=== PATIENT | male | born 1950 | race Caucasian/White ===

== ENCOUNTER 2018-05-17 03:12 | Inpatient (IN) | payer MEDICARE ==
[2018-05-17] VITALS (13 sets, daily range): BP systolic 113–203; BP diastolic 60–97
[~2018-05-17] VITALS: Ht 188 cm; Wt 95.8 kg
--- NOTE | 2018-05-17 03:12 | NUR ---
Pt immediately to room # 12 via EMS stretcher.
--- NOTE | 2018-05-17 03:16 | NUR ---
UPDRAFT CHANGED FROM AIR TO O2 PER DR. MCCULLOUGH.
[2018-05-17] MEDS ORDERED: STIOLTO RESPIMA1 AER IN (03:26)
[2018-05-17] MEDS ORDERED: LISINOP/HCTZ1 TAB PO (03:26)
[2018-05-17] MEDS ORDERED: TIZANIDINE2 MG PO (03:27)
[2018-05-17] MEDS ORDERED: NORVASC5 M1 PO (03:27)
[2018-05-17] MEDS ORDERED: IPRATROPIU0.5 MG/3 M IN (03:27)
[2018-05-17] MEDS ORDERED: ASPIRIN CHEWABL81 MG PO (03:28)
[2018-05-17] MEDS ORDERED: METFORMIN500 MG PO (03:28)
[2018-05-17] MEDS ORDERED: SPIRIVA HANDIHALER IN (03:28)
[2018-05-17] MEDS ORDERED: ATORVASTATIN CA80 MG PO (03:28)
--- NOTE | 2018-05-17 03:30 | NUR ---
PT ARRIVED VIA EMS IN RESP DISTRESS ON UPDRAFT TREATMENT # 2. PT WAS GIVEN SOLUMEDROL EN ROUTE. PT WORKING.
--- NOTE | 2018-05-17 03:36 | NUR ---
AFTER ABG...PT CHANGED BACK TO NEB ON RA AND NC @ 3 LPM APPLIED. SAT AT 94.
--- NOTE | 2018-05-17 03:49 | NUR ---
SBAR PRINTED TO FLOOR
[2018-05-17 03:50] LABS: HEMATOCRIT 46.3 % (39.0-50.0); HEMOGLOBIN 15.5 g/dl (14.0-18.0); IMMATURE GRANULOCYTES 0.5 % (0.0-5.0); MEAN CELL VOLUME 90.8 fL CALC (80.0-100.0); MEAN CORPUSCULAR HGB 30.4 pG CALC (26.0-32.0); MEAN CORPUSCULAR HGB CONC 33.5 g/L CALC (32.0-36.0); NEUT# 14.54 thou/uL (1.82-7.42); RED BLOOD COUNT 5.1 mill/uL (4.70-6.10); RED CELL DISTRI WIDTH 12.4 % (11.5-15.5)
--- NOTE | 2018-05-17 03:52 | NUR ---
ARRIVING IN ER, ABG DRAWN AND ANALYSED. RESULT ON MEDITECH. THEN PLACED ON BIPAP WITH PRESSURE 20/10 AND 26% OXYGEN. SPO2 95% WITH BIPAP SETTING. 4 BREATHING TREATMENT GIVEN WITH ALBUTEROL FOR TIGHTNESS AND WHEEZING. WILL CONTINUE TO MONITOR THE PATIENT.
[2018-05-17 03:56] LABS: ALBUMIN 4.3 g/dL (3.2-5.0); ALKALINE PHOSPHATASE 100 u/l (38-126); BILIRUBIN, TOTAL 0.4 mg/dL (0.0-1.4); BUN 13 mg/dL (8-23); BUN/CREATININE RATIO 20 (12-20 (CALC)); CHLORIDE 93 mmol/l (95-108); CREATININE 0.6 mg/dL (0.7-1.3); GFR > 60 ML/MIN (>=60 (CALC)); GFR FOR AFR.AMER. > 60 ML/MIN (>=60 (CALC)); POTASSIUM 4.5 mmol/l (3.5-5.1); SGPT/ALT 26 u/l (11-66); SODIUM 142 mmol/l (137-146); TOTAL PROTEIN 7.4 g/dL (6.3-8.2)
--- NOTE | 2018-05-17 03:57 | NUR ---
LAB HERE TO DRAW CULTURES
--- NOTE | 2018-05-17 04:01 | NUR ---
DR CAMARENA AT BEDSIDE TO DISCUSS CONDITION AND PLAN OF CARE WITH PT AND FAMILY.
[2018-05-17 04:02] LABS: ANION GAP 18 (6-22 (CALC)); CARBON DIOXIDE 36 mmol/l (22-30)
[2018-05-17 04:03] LABS: SGOT/AST 29 u/l (19-48)
[2018-05-17 04:07] LABS: MYOGLOBIN 55 ng/mL (0 - 121)
--- NOTE | 2018-05-17 04:13 | NUR ---
REPORT TO ICU/DESI DUNLAP.
--- NOTE | 2018-05-17 04:24 | NUR ---
2ND ABD DRAWN AND ANALYSED. RESULT IN [facility].
--- NOTE | 2018-05-17 04:25 | NUR ---
TO FLOOR WITH RT WITH PT ON BIPAP. PT IS MUCH IMPROVED. TOLERATING BIPAP WELL. STILL WHEEZING. BUT WITH LESS EFFORT. FAMILY WITH US TO FLOOR.
--- NOTE | 2018-05-17 04:45 | NUR ---
PT. ARRIVES VIA STRETCHER WITH BIPAP AND NOTEMAN IN PLACE. PT. WITH SOB ON ARRIVAL. SINUS TACH AT 115. HYPERTENSIVE AT 190/90 AT THIS TIME. WHEEZES NOTED THROUGHOUT. DIMINISHED BASES. INTRODUCE TO STAFF AND CALL LIGHT SYSTEM. PT. DENIES PAIN AT THIS TIME. SPO2 IS 96% ON THE BIPAP. SKIN WARM AND DRY. AFEBRILE. BOWEL SOUNDS PRESENT IN 4 QUADS. 1+ PITTING NOTED, BUT PT. APPEARS MORE SWOLLEN THAN AMOUT OF PITTING WOULD SUGGEST. PT. MOVED HIMSELF FROM ER STRETCHER OVER TO BED, BURGESS NOTED. CALL LIGHT WITHIN REACH AND EXPLAINED TO PATIENT. ASSISTED TO REMOVE JEANS AND PROVIDED WITH URINAL ON ARRIVAL PER REQUEST. APPROX 100 CC CONCENTRATED YELLOW URINE OUT AT THIS TIME.
--- NOTE | 2018-05-17 05:46 | NUR ---
PT. RESTING COMFORTABLE ON THE BIPAP. DENIES COMPLAINTS OF PAIN OR NEED. BP IMPROVED. PT. CALM AT THIS TIME. SINUS RHYTHM AT 98. REMAINS ON BIPAP 20/10, RATE OF 20, FIO2 26%. IV ANTIBIOTICS INFUSING WITHOUT SX OF INFILTRATION OR REACTIONS. ROCEPHIN COMPLETE. WILL CONTINUE TO MONITOR.
--- NOTE | 2018-05-17 06:45 | NUR ---
RECIEVED REPORT FROM ROSALINE. [facility] PT C[facility].
--- NOTE | 2018-05-17 07:15 | NUR ---
KOREY RT TO ASSESS PT, NEB TX GIVEN AT BEDSIDE.
--- NOTE | 2018-05-17 07:45 | NUR ---
PT ALERT AND ABLE TO MAKE NEEDS KNOWN. BIPAP INTACT, SEE RT SETTINGS. SA02@98%. LS SOUNDS DIMINISHED IN BASES, WITH WHEEZING NOTED THROUGHOUT. BSX4, PT REPORTS LAST BM 05/16/18. PT CONTINENT OF URINE, BEDSIDE URINAL IN PLACE. RAISED AREA AT INNER/UPPER LEFT BUTTOCKS. PT REMAINS NPO WHILE ON BIPAP, BED IN LOWEST POSITION WITH HOB UP PER PT REQUEST. PT DENIES CHEST PAIN, OR DISTRESS AT THIS TIME. CALL LIGHT IN REACH. WILL MONITOR.
--- NOTE | 2018-05-17 09:45 | NUR ---
PT RESTING WITH HOB UP, BIPAP IN PLACE, SA02 99%. PT DENIES PAIN OR DISTRESS AT THIS TIME. IV CONTINUES INFUSING TO LH AT KVO. CALL LIGHT IN REACH, WILL MONITOR.
--- NOTE | 2018-05-17 10:50 | NUR ---
FAMILY ARRIVED ON UNIT AND AT BEDSIDE.
--- NOTE | 2018-05-17 11:00 | NUR ---
RT KOREY AT BEDSIDE FOR NEB TREATMENT AND TO ASSESS PT OFF BIPAP.
--- NOTE | 2018-05-17 11:25 | NUR ---
RT TO LEAVE PT OFF BIPAP, PT SA02@96% ON 2PLM PAT NC. PT TOLERATING WELL. CALL LIGHT IN REACH, WILL MONITOR.
--- NOTE | 2018-05-17 11:40 | NUR ---
PT REQUESTING INFORMATION AND TO SPEAK WITH DR. MOORE IN REGARDS TO BECOMING A DNR.
--- NOTE | 2018-05-17 12:00 | NUR ---
DR. MOORE AT BEDSIDE TO DISCUSS PLAN OF CARE AND FOR ASSESSMENT.FAMILY REMAINS AT THE BEDSIDE.
--- NOTE | 2018-05-17 12:30 | NUR ---
PT REQUESTED DR. MOORE TO MAKE HIM DNR. EDUCATION GIVEN TO PT AND FAMILY ON DNR STATUS, PT REQUEST GRANTED. PT SIGNED DNR STATUS, PLACED IN PT CHART.
--- NOTE | 2018-05-17 13:30 | NUR ---
LISA FROM CM AT BEDSIDE WITH PT AND FAMILY TO DISCUSS LIVING [facility] AND HEALTH CARE PROXY, EDUCATION PROVIDED.
[2018-05-17 13:52] LABS: HEMATOCRIT 44.1 % (39.0-50.0); HEMOGLOBIN 14.9 g/dl (14.0-18.0); IMMATURE GRANULOCYTES 0.4 % (0.0-5.0); MEAN CELL VOLUME 89.1 fL CALC (80.0-100.0); MEAN CORPUSCULAR HGB 30.1 pG CALC (26.0-32.0); MEAN CORPUSCULAR HGB CONC 33.8 g/L CALC (32.0-36.0); NEUT# 9.97 thou/uL (1.82-7.42); RED BLOOD COUNT 4.95 mill/uL (4.70-6.10); RED CELL DISTRI WIDTH 12.6 % (11.5-15.5)
--- NOTE | 2018-05-17 14:00 | NUR ---
PT ASSISTED TO SIDE OF BED FOR URINAL, DARK YELLOW URINE NOTED. PT DENIES CHEST PAIN, OR DISTRESS AT THIS TIME. 02@2LPM VIA NC CONTINUES, LABORED BREATHING NOTED SA02@ 96%. CALL LIGHT IN REACH, WILL MONITOR.
[2018-05-17 14:18] LABS: ANION GAP 14 (6-22 (CALC)); BUN 15 mg/dL (8-23); BUN/CREATININE RATIO 25 (12-20 (CALC)); CARBON DIOXIDE 36 mmol/l (22-30); CHLORIDE 94 mmol/l (95-108); CREATININE 0.6 mg/dL (0.7-1.3); GFR > 60 ML/MIN (>=60 (CALC)); GFR FOR AFR.AMER. > 60 ML/MIN (>=60 (CALC)); POTASSIUM 4.6 mmol/l (3.5-5.1); SODIUM 139 mmol/l (137-146)
--- NOTE | 2018-05-17 14:25 | NUR ---
critical lactic of 2.5 report to Benedict Sahu RN
--- NOTE | 2018-05-17 16:15 | NUR ---
PT ASSISTED TO BSC, XXL DARK BROWN FORMED BM. PT ASSISTED BACK TO BED, CALL LIGHT IN REACH, WILL MONITOR.
--- NOTE | 2018-05-17 16:30 | NUR ---
PT POLICE OFFICER BOOKING AT BEDSIDE FOR VISIT. PT AFEBRILE, IV FLUID CONTINUES 500ML BOLUS OF NS ORDERED. PT TOLERATING WELL. CALL LIGHT IN REACH, WILL MONITOR.
--- NOTE | 2018-05-17 18:00 | NUR ---
PT RESTING IN BED, FAMILY REMAINS AT THE BEDSIDE. IV FLUIDS CONTINUE ORDERED TO RH, NO S/S OF INFILTRATION AT SITE. SA02 REMAINS 97% ON 02@2LPM VIA NC. BREATHING REMAINS LABORED. PT DENIES CHEST PAIN OR DISTRESS AT THIS TIME. BED IN LOWEST POSITION, CALL LIGHT IN REACH, WILL MONITOR.
--- NOTE | 2018-05-17 19:00 | NUR ---
awake. hob high fowlers position. denies resp diff. o2 cont per nc. family independence case manager shows sinus tach. #20 lt hand ns infusing @ [id number]. po fluids taken well. voids per urinal. fall precautions cont.
--- NOTE | 2018-05-17 19:40 | NUR ---
voided per urinal. urine spec sent to lab.
[2018-05-17 19:47] LABS: URINE BILIRUBIN - DIPSTICK NEGATIVE (NEGATIVE); URINE BLOOD DIPSTICK NEGATIVE (NEGATIVE); URINE COLOR YELLOW; URINE GLUCOSE - DIPSTICK 500 mg/dL (NEGATIVE); URINE KETONE NEGATIVE (NEGATIVE); URINE LEUK ESTERASE NEGATIVE (NEGATIVE); URINE NITRITE - DIPSTICK NEGATIVE (Negative); URINE PH 6.5 (4.5-8.0); URINE PROTEIN - DIPSTICK NEGATIVE (NEG-TRACE); URINE UROBILINOGEN - DIPSTICK 0.2 E.U./dL (0.2)
[2018-05-17 19:56] LABS: URINE CLARITY CLEAR
--- NOTE | 2018-05-17 20:15 | NUR ---
dr guerrero called this copy writer. updated on pts condition. orders rec'd.
--- NOTE | 2018-05-17 22:00 | NUR ---
watching tv. family @ bedside.
--- NOTE | 2018-05-17 22:30 | NUR ---
rt @ bedside. pt doesn't want bipap @ present. o2 per nc cont.
[2018-05-18] VITALS (12 sets, daily range): BP systolic 113–171; BP diastolic 56–82
--- NOTE | 2018-05-18 00:01 | NUR ---
watching tv. sdenies resp distress. monitoring coordinator shows sinus tach family @ bedside.
--- NOTE | 2018-05-18 02:00 | NUR ---
resting quietly. no resp distress. o2 cont.
--- NOTE | 2018-05-18 04:13 | NUR ---
lab here. blood drawn.
[2018-05-18 05:03] LABS: HEMATOCRIT 40.5 % (39.0-50.0); HEMOGLOBIN 13.5 g/dl (14.0-18.0); IMMATURE GRANULOCYTES 0.5 % (0.0-5.0); MEAN CELL VOLUME 90.2 fL CALC (80.0-100.0); MEAN CORPUSCULAR HGB 30.1 pG CALC (26.0-32.0); MEAN CORPUSCULAR HGB CONC 33.3 g/L CALC (32.0-36.0); NEUT# 13.6 thou/uL (1.82-7.42); RED BLOOD COUNT 4.49 mill/uL (4.70-6.10); RED CELL DISTRI WIDTH 12.6 % (11.5-15.5)
[2018-05-18 05:13] LABS: ANION GAP 11 (6-22 (CALC)); BUN 12 mg/dL (8-23); BUN/CREATININE RATIO 19 (12-20 (CALC)); CARBON DIOXIDE 32 mmol/l (22-30); CHLORIDE 102 mmol/l (95-108); CREATININE 0.6 mg/dL (0.7-1.3); GFR > 60 ML/MIN (>=60 (CALC)); GFR FOR AFR.AMER. > 60 ML/MIN (>=60 (CALC)); POTASSIUM 4.4 mmol/l (3.5-5.1); SODIUM 141 mmol/l (137-146)
--- NOTE | 2018-05-18 06:00 | NUR ---
awake. no resp distress this shift. o2 cont per nc. family remains @ bedside.
--- NOTE | 2018-05-18 06:45 | NUR ---
RECIEVED REPORT FROM ROMIE EMERSON. ASSUMED PT CARE.
--- NOTE | 2018-05-18 07:30 | NUR ---
PT AWAKE, ALERT AND ABLE TO MAKE NEEDS KNOWN. FAMILY AT BEDSIDE. AFEBRILE. PERRL, PT ST ON TELEMETRY, HR 102. PT DENIES CHEST PAIN OR DISTRESS. PT CONTINUES WITH LABORED BREATHING, WHEEZING THOUGHOUT ALL LOBES. SA02@95% ON 2PLM VIA NC. BS X 4 ACTIVE. LAST BM XL 05-17-18. PT CONTINENT OF BLADDER. SKIN CDI WITH BERNIE'S TO BLE.T-98.4, B/P- 137/70, P- 102, RR-22.CALL LIGHT IN REACH. WILL MONITOR.
--- NOTE | 2018-05-18 07:40 | NUR ---
SPUTUM SAMPLE OBTAINED AND SENT TO LAB.
--- NOTE | 2018-05-18 08:00 | NUR ---
DIETARY ON UNIT, BREAKFAST TRAY SET UP. FAMILY REMAINS AT BEDSIDE.
--- NOTE | 2018-05-18 09:00 | NUR ---
PT AND FAMILY ASKING QUESTIONS IN REGARDS TO LIVING WILL, REFERRED TO [facility]. PLACED CALL TO LISA.
--- NOTE | 2018-05-18 10:00 | NUR ---
PT UP IN CHAIR, BATH AND SHAVING SUPPLIES SET UP. PT BATHED AND SHAVED SELF. PT TOLERATING EXERTION BETTER WITH LITTLE SOB. 02@2LPM VIA NC CONTINUES. SA02@97%. AFEBRILE. PT OFFERS NO COMPLAINTS AT THIS TIME.
--- NOTE | 2018-05-18 11:51 | NUR ---
PT ASSISTED BACK TO BED. CALL LIGHT IN REACH. DIETARY ON UNIT, LUNCH TRAY SET UP. WILL MONITOR.
--- NOTE | 2018-05-18 14:06 | NUR ---
PT RESTING IN BED. FAMILY REMAINS AT BEDSIDE. IV TO LH CONTINUES WITH NS @ 150ML/HR ORDERED, NO S/S OF INFILTRATION NOTED. 02@2PLM VIA NC CONTINUES. SA02@94%. PT DENIES CHEST PAIN, SOB OR DISTRESS AT THIS TIME. BERNIE'S BLES INTACT. PT TAKING PO FLUIDS WITHOUT DIFFICULTY. CALL LIGHT IN REACH, WILL MONITOR.
--- NOTE | 2018-05-18 16:04 | NUR ---
PT RESTING IN BED, OFFERS NO COMPLAINTS AT THIS TIME,
--- NOTE | 2018-05-18 17:00 | NUR ---
DR. MOORE AT BEDSIDE FOR ASSESSMENT AND TO DISCUSS PLAN OF CARE, NEW ORDERS RECIEVED.
--- NOTE | 2018-05-18 18:11 | NUR ---
PT RESTING IN BED, FAMILY REMAINS AT THE BEDSIDE. ALL IV MEDS HAVE BEEN DISCONTINUED. PT SA02@95% ON 2PLM VIA NC. PT CONTINUES SBA WITH NO SOB UPON EXERTION. PT DENIES CHEST PAIN, SOB OR DISTRESS AT THIS TIME. CALL LIGHT IN REACH, WILL MONITOR.
--- NOTE | 2018-05-18 19:00 | NUR ---
awake. denies resp diff. o2 cont per nc. keno manager shows sinus rhythm. #20 lt hand saline lock. po fluids taken well. voids per urinal. fall precautions cont.
--- NOTE | 2018-05-18 22:00 | NUR ---
watching tv. no resp diff. o2 cont. family @ bedside.
[2018-05-19] VITALS (12 sets, daily range): BP systolic 74–163; BP diastolic 52–88
--- NOTE | 2018-05-19 00:01 | NUR ---
eyes closed. no distress. monitoring analyst shows sinus rhythm.
--- NOTE | 2018-05-19 02:00 | NUR ---
resting quietly. resps even & unlabored. o2 cont.
--- NOTE | 2018-05-19 04:00 | NUR ---
lab here. blood drawn.
[2018-05-19 04:22] LABS: HEMATOCRIT 42.9 % (39.0-50.0); HEMOGLOBIN 14.4 g/dl (14.0-18.0); IMMATURE GRANULOCYTES 0.3 % (0.0-5.0); MEAN CELL VOLUME 90.1 fL CALC (80.0-100.0); MEAN CORPUSCULAR HGB 30.3 pG CALC (26.0-32.0); MEAN CORPUSCULAR HGB CONC 33.6 g/L CALC (32.0-36.0); NEUT# 12.79 thou/uL (1.82-7.42); RED BLOOD COUNT 4.76 mill/uL (4.70-6.10); RED CELL DISTRI WIDTH 12.6 % (11.5-15.5)
[2018-05-19 04:33] LABS: ANION GAP 10 (6-22 (CALC)); BUN 14 mg/dL (8-23); BUN/CREATININE RATIO 21 (12-20 (CALC)); CARBON DIOXIDE 36 mmol/l (22-30); CHLORIDE 102 mmol/l (95-108); CREATININE 0.7 mg/dL (0.7-1.3); GFR > 60 ML/MIN (>=60 (CALC)); GFR FOR AFR.AMER. > 60 ML/MIN (>=60 (CALC)); POTASSIUM 4.2 mmol/l (3.5-5.1); SODIUM 143 mmol/l (137-146)
--- NOTE | 2018-05-19 06:00 | NUR ---
eyes closed. no distress. child monitor shows sinus rhythm.
--- NOTE | 2018-05-19 06:45 | NUR ---
RECIEVED REPORT FROM ROMIE EMERSON. ASSUMED PT CARE.
--- NOTE | 2018-05-19 07:15 | NUR ---
PT RESTING IN BED. ALERT & oRIENT X 3, ABLE TO MAKE NEEDS KNOWN.PERRL. PT IS ST ON TELEMETRY. HR-101, B/P-162/77, T- 98.2, RR- 22, SA02@95% ON 2PLM VIA NC. LS WITH RHONCHI THROUGHOUT. PT CONTINUES WITH INTERMITTENT PRODUCTIVE COUGH. CONTINENT ON B&B,, BS X4 ACTIVE. ABDOMEN SOFT, NON-TENDER. BLE CONTINUES @ +1, BERNIE'S INTACT. PT SBA WITH AMBULATION. PT DENIES CHEST PAIN, SOB OR DISTRESS AT THIS TIME. IV/SL TO LH FLUSHED WITHOUT DIFFICULTY, NO S/S OF INFILTRATION NOTED AT SITE. FAMILY REMAINS AT BEDSIDE. CALL LIGHT IN REACH, WILL MONITOR.
--- NOTE | 2018-05-19 08:00 | NUR ---
DIETARY ON UNIT, BREAKFAST TRAY SET UP.
--- NOTE | 2018-05-19 10:00 | NUR ---
DR. CHAVEZ AT BEDSIDE FOR ASSESSMENT AND TO DISCUSS PLAN OF CARE. NEW ORDERS RECIEVED.PT FAMILY REMAINS AT THE BEDSIDE.
--- NOTE | 2018-05-19 11:53 | NUR ---
PT RESTING IN BED, LUNCH TRASY SET UP. PT OFFERS NO COMPLAINTS AT THIS TIME. FAMILY AT BEDSIDE. CALL LIGHT IN REACH, WILL MONITOR.
--- NOTE | 2018-05-19 14:00 | NUR ---
PT RESTING IN BED, OFFERS NO COMPLAINTS AT THIS TIME.
--- NOTE | 2018-05-19 15:23 | NUR ---
PT SITTING IN CHAIR, 02@2LPM VIA NC. PT DENIES CHEST PAIN, SOB OR DISTRESS AT THIS TIME. FAMILY REMAINS AT THE BEDSIDE. CALL LIGHT IN REACH, WILL MONITOR
--- NOTE | 2018-05-19 17:04 | NUR ---
PT SITTING IN CHAIR, RT AT BEDSIDE FOR [facility] [place]. CALL LIGHT IN REACH, WILL MONITOR.
--- NOTE | 2018-05-19 18:19 | NUR ---
PT REMAINS SITTING IN RECLINER, PT DENIES CHEST PAIN, SOB OR DISTRESS AT THIS TIME. SA02@97% ON 2LPM VIA NC. CALL LIGHT IN REACH, WILL MONITOR.
--- NOTE | 2018-05-19 18:23 | NUR ---
DR. DIXON AT BEDSIDE FOR ASSESSMENT AND TO DISCUSS PLAN OF CARE.
--- NOTE | 2018-05-19 20:00 | NUR ---
PT IN BED WATCHING TV, RESPIRATIONS EVEN AND UNLABORED ON O2 @2L VIA NC, O2 SAT 96%. LUNG SOUNDS CLEAR WITH COARSE BASES BILAT. DENIES SOB, PAIN OR DISCOMFORT. SR 80'S ON HEART MONITOR. URINAL AT BED SIDE, PO FLUIDS IN REACH. ENCOURAGED TO CALL LIGHT FOR ASSISTANCE. WILL CONTINUE TO MONITOR.
--- NOTE | 2018-05-19 21:26 | NUR ---
ACCUCHECK 272, COVERED WITH 3UNITS OF NOVULOG INSULIN SQ, PER SS, STOLERATED WELL.
--- NOTE | 2018-05-19 23:38 | NUR ---
RESTING IN SEMIFOWLERS WITH EYES CLOSED, RESPIRATIONS EVEN AND UNLABORED ON O2 @2L VIA NC, O2 SAT 95%. CALL LIGHT IN REACH.
[2018-05-20] VITALS (7 sets, daily range): BP systolic 128–149; BP diastolic 63–86
--- NOTE | 2018-05-20 02:00 | NUR ---
RESTING IN SEMIFOWLERS WITH EYES CLOSED, RESPIRATIONS EVEN AND UNLABORED ON O2 @2L ASAD NC, O2 SAT 96%. CALL LIGHT IN REACH.
--- NOTE | 2018-05-20 04:20 | NUR ---
MORNING BLOOD WORK DRAWN BY DIRECTOR OF ARCHITECTURE, TOLERATED WELL.
[2018-05-20 04:41] LABS: HEMATOCRIT 40.6 % (39.0-50.0); HEMOGLOBIN 13.9 g/dl (14.0-18.0); MEAN CELL VOLUME 87.5 fL CALC (80.0-100.0); MEAN CORPUSCULAR HGB CONC 34.2 g/L CALC (32.0-36.0); RED BLOOD COUNT 4.64 mill/uL (4.70-6.10); RED CELL DISTRI WIDTH 12.4 % (11.5-15.5)
[2018-05-20 04:52] LABS: ANION GAP 12 (6-22 (CALC)); BUN 20 mg/dL (8-23); BUN/CREATININE RATIO 34 (12-20 (CALC)); CARBON DIOXIDE 31 mmol/l (22-30); CHLORIDE 100 mmol/l (95-108); CREATININE 0.6 mg/dL (0.7-1.3); GFR > 60 ML/MIN (>=60 (CALC)); GFR FOR AFR.AMER. > 60 ML/MIN (>=60 (CALC)); POTASSIUM 4.5 mmol/l (3.5-5.1); SODIUM 138 mmol/l (137-146)
--- NOTE | 2018-05-20 06:45 | NUR ---
recieved report from [facility].
--- NOTE | 2018-05-20 07:15 | NUR ---
PT ALERT AND ABLE TO MAKE NEEDS KNOWN. PT SITTING UP IN BED. SR ON TELEMETRY, HR- 93, B/P 136/68, T- 98.5, RR- 22, SA02@92 ON 2LPM VIA N/C. LS WITH WHEEZING/RHONCHI THROUGHOUT. PT DENIES SOB, CHEST PAIN OR DISTRESS AT THIS TIME. PERRL. PT CONTINENT OF B&B, LAST BM SAT.05-17-18. ABDOMEN SOFT, NON-TENDER. SKIN IS CDI, PT SBA WITH ADL'S AND TRANSFERS. 22G @LW /SL FLUSHES WITHOUT DIFFICULTY NOTED, NO S/S OF INFILTRATION OR INFECTION NOTED. CALL LIGHT IN REACH, WILL MONITOR.
--- NOTE | 2018-05-20 08:00 | NUR ---
DR. CHAVEZ AT BEDSIDE FOR ASSESSMENT AND TO DISCUSS PLAN OF CARE.
--- NOTE | 2018-05-20 08:21 | NUR ---
MED RECORDE NOTIFIED IN REGARDS TO PT PULMONARY FUNCTION TEST. RESULT BROUGHT TO UNIT FOR DR. CHAVEZ TO REVIEW.
[2018-05-20] MEDS ORDERED: LEVAQUIN750 MG PO (08:30)
[2018-05-20] MEDS ORDERED: ALBUTEROL SUL0.083 % IN (08:30)
[2018-05-20] MEDS ORDERED: PREDNISONE10 MG PO (08:30)
--- NOTE | 2018-05-20 08:30 | NUR ---
DR. DIXON AT BEDSIDE FOR ASSESSMENT AND TO DISCUSS PLAN OF CARE.
[2018-05-20] MEDS ORDERED: SYMBICORT1 AE1 IN (08:33)
--- NOTE | 2018-05-20 09:00 | NUR ---
NEW ORDERS RECIEVED.
--- NOTE | 2018-05-20 09:57 | NUR ---
SID FROM CM AT BEDSIDE TO DEMARCUS DISCHARGE PLANNING.
--- NOTE | 2018-05-20 10:36 | NUR ---
TOÑO FROM [facility] AT BEDSIDE TO CHILDCARE ADMINISTRATOR PRESCRIPTIONS OF ALBUTEROL, LEVAQUIN, PRENISONE AND SYMBICORT. PT AGREED TO AND ASKED TO CHILDCARE ADMINISTRATOR AT STORE.
--- NOTE | 2018-05-20 12:15 | NUR ---
IV site discontinued, cath intact. No edema , no redness, voices no discomfort.
--- NOTE | 2018-05-20 12:26 | NUR ---
RT AT BEDSIDE FOR SA02%/WALK STUDY. FAMILY REMAINS AT THE BEDSIDE PT TOLERATING WELL. PT OFFERS NO COMPLAINTS AT THIS TIME. WILL MONITOR
--- NOTE | 2018-05-20 12:50 | NUR ---
Discharge instructions given. Patient verbalizes understanding of same. Discharged in stable condition via Wheelchair to Home with family. All belongings sent with pt.
== END 2018-05-20 12:50 | disposition home or self-care (01) | DRG 189 ==
LOC: ED 03:12 → ED-I 03:46 → ED 04:03 → ICU 04:04
PROVIDERS: Family Medicine; Internal Medicine; ADMIT General Practice; ATTEND General Practice
PROC: 5A09357 Assistance with Respiratory Ventilation, Less than 24 Consecutive Hours, Continuous Positive Airway Pressure (ICD-10-PCS; principal; 2018-05-17)
DX: J96.22 Acute and chronic respiratory failure with hypercapnia (principal); J44.1 Chronic obstructive pulmonary disease with (acute) exacerbation; I10 Essential (primary) hypertension; E11.9 Type 2 diabetes mellitus without complications; M19.90 Unspecified osteoarthritis, unspecified site; Z87.891 Personal history of nicotine dependence; Z99.81 Dependence on supplemental oxygen
CPT/HCPCS: J1650

== ENCOUNTER 2021-11-13 07:00 | Day surgery (SDC) | payer MEDICARE ==
[~2021-11-13 07:00] MED LIST: ALBUTEROL SUL0.083 % IN; ASPIRIN CHEWABL81 MG PO; ATORVASTATIN CA80 MG PO; IPRATROPIU0.5 MG/3 M IN; LEVAQUIN750 MG PO; LISINOP/HCTZ1 TA1 PO; LISINOP/HCTZ1 TAB PO; METFORMIN500 MG PO; NORVASC10 M1 PO; NORVASC5 M1 PO; PREDNISONE10 MG PO; PROAIR HFA108 MCG/AC IN; PROTONIX40 M2 PO; SPIRIVA HANDIHALER IN; STIOLTO RESPIMA1 AER IN; SYMBICORT1 AE1 IN; TIZANIDINE2 MG PO; TRULICITY1.5 MG/0.5 SC; VITAMIN C1000 MG PO; [UNRECOGNIZED DRUG - OTHER] PO
[2021-11-13 11:21] VITALS: BP 148/72
== END 2021-11-13 11:05 | disposition home or self-care (01) ==
LOC: ENDO 07:00 → ORM 08:00 → ENDO 11:05
PROVIDERS: ATTEND Surgery
PROC: 0DBN8ZX Excision of Sigmoid Colon, Via Natural or Artificial Opening Endoscopic, Diagnostic (ICD-10-PCS; principal; 2021-11-13)
PROC: 3E0H8GC Introduction of Other Therapeutic Substance into Lower GI, Via Natural or Artificial Opening Endoscopic (ICD-10-PCS; 2021-11-13)
PROC: 0DB78ZX Excision of Stomach, Pylorus, Via Natural or Artificial Opening Endoscopic, Diagnostic (ICD-10-PCS; 2021-11-13)
DX: C18.7 Malignant neoplasm of sigmoid colon (principal); K57.30 Diverticulosis of large intestine without perforation or abscess without bleeding; K29.50 Unspecified chronic gastritis without bleeding; B96.81 Helicobacter pylori [H. pylori] as the cause of diseases classified elsewhere; K44.9 Diaphragmatic hernia without obstruction or gangrene; Q40.2 Other specified congenital malformations of stomach; D50.0 Iron deficiency anemia secondary to blood loss (chronic); I10 Essential (primary) hypertension; E11.9 Type 2 diabetes mellitus without complications; E78.5 Hyperlipidemia, unspecified; J44.9 Chronic obstructive pulmonary disease, unspecified; Z87.891 Personal history of nicotine dependence; Z79.84 Long term (current) use of oral hypoglycemic drugs; Z80.0 Family history of malignant neoplasm of digestive organs

== ENCOUNTER 2021-11-15 09:29 | Inpatient (IN) | payer MEDICARE ==
[~2021-11-15] VITALS: Ht 182.9 cm; Wt 97.5 kg
[2021-11-15] MEDS ORDERED: SENIOR VITAM PO (13:29)
[2021-11-16] VITALS (7 sets, daily range): BP systolic 112–144; BP diastolic 55–68
--- NOTE | 2021-11-16 17:09 | NUR ---
PT ARIVED ON UNIT @ 1607 TRANSPORTED VIA STRETCHER BY OR/PASU STAFF AND TRANSFERRED TO BED. BEDSIDE REPORT GIVEN BY TRANSPORTING STAFF, PT IS ALERT AND ORIENTED, C/O VERY MILD ABD PAIN @ 3/10, INCISION TO ABD WITH DRESSING INTACT AND VISIBLE BLOOD TO DISTAL ED OF DRESSING, ABD BINDER IN PLACE, SMITH CATHETER IN PLACE WITH CLEAR YELLOW URINE. O2 @ 2L VIA NC IN PLACE, IVF INFUSING TO SITE IN RAC. PT ORIENTED TO ROOM AND CALL MCKEON, WILL CONTINUE TO MONITOR.
--- NOTE | 2021-11-16 18:58 | NUR ---
RECIEVED REPORT FROM DESI ARDON
--- NOTE | 2021-11-16 19:00 | NUR ---
RECIEVED REPORT FROM DESI ARDON
--- NOTE | 2021-11-16 19:00 | NUR ---
PT RESTING IN SEMI FOWLERS POSITION. PT IS A/OX3. ASSESSMENT AND VITALS COMPLETED. RESPIRATIONS EVEN AND UNLABORED. LUNG SOUNDS CLEAR. HEART RHYTHM NORMAL. BOWEL SOUNDS CLEAR.#20G RAC INFUSING WITH IVF PER ORDER, SITE REMAINS HEALTHY AND PATENT.PULSES STRONG, SCDS NOTED. MIDLINE SURGICAL SITE NOTED, SMALL AMOUNT OF DRAINAGE NOTED. ABD BINDER SECURED. SMITH CATH PATENT, CLEAR YELLOW URINE NOTED. PT DENIES OF ANY PAINS OR DISCOMFORTS AT THIS TIME. ALL SAFTEY PRECAUTIONS ARE IN PLACE WITH CALL LIGHT IN REACH. WILL CONTINUE TO MONITOR.
[2021-11-17] VITALS: BP 119/67
--- NOTE | 2021-11-17 00:15 | NUR ---
PT MEDICATED WITH SCHEDULED PAIN MEDICATIONS. RESPIRATIONS EVEN AND UNLABORED ON 2L NC RESTING IN SEMI FOWLERS POSITION. #20G RAC INFUSING WITH IVF PER ORDER, SITE PATENT.MIDLINE DRESSING REMAINS CDI. SMITH CATH PATENT. PT DENIES OF ANY ADDITIONAL NEEDS. ALL SAFTEY PRECAUTIONS ARE IN PLACE WITH CALL LIGHT IN REACH. WILL CONTINUE TO MONITOR
--- NOTE | 2021-11-17 01:06 | NUR ---
PT STATES NO CURRENTS PAINS. I.S PROVIDED. PT EDUCATED ON [employer]. PT ABLE TO DEMONSTRATE, 1999 REACH.
--- NOTE | 2021-11-17 03:56 | NUR ---
PT SLEEPING IN SEMI FOWLERS POSITION. RESPIRATIONS EVEN AND UNLABORED ON 2L NC RESTING IN SEMI FOWLERS POSITION. #20G RAC INFUSING WITH IVF PER ORDER, SITE PATENT.MIDLINE DRESSING REMAINS CDI. SMITH CATH JASON. ALL SAFTEY PRECAUTIONS ARE IN PLACE WITH CALL LIGHT IN REACH. WILL CONTINUE TO MONITOR
[2021-11-17 04:00] VITALS: BP 115/69
[2021-11-17 05:26] LABS: IMMATURE GRANULOCYTES 0.2 % (0.0-5.0); MEAN CELL VOLUME 81.2 fL CALC (80.0-100.0); MEAN CORPUSCULAR HGB 24.1 pG CALC (26.0-32.0); MEAN CORPUSCULAR HGB CONC 29.7 g/dL CAL (32.0-36.0); NEUT# 15.73 thou/uL (1.82-7.42); RED BLOOD COUNT 3.94 mill/uL (4.70-6.10)
[2021-11-17 05:38] LABS: HEMOGLOBIN 9.5 g/dl (14.0-18.0)
[2021-11-17 05:50] LABS: ANION GAP 11 (6-22 (CALC)); BUN 12 mg/dL (8-23); BUN/CREATININE RATIO 12 (12-20 (CALC)); CHLORIDE 101 mmol/l (95-108); GFR > 60 ML/MIN (>=60 (CALC)); GFR FOR AFR.AMER. > 60 ML/MIN (>=60 (CALC)); POTASSIUM 3.8 mmol/l (3.5-5.1); SODIUM 137 mmol/l (137-146)
[2021-11-17 05:54] LABS: CARBON DIOXIDE 29 mmol/l (22-30)
[2021-11-17 08:00] VITALS: BP 126/69
--- NOTE | 2021-11-17 08:00 | NUR ---
REPORT RECEIVED FROM ROMIE RITTER. PT AWAKE ALERT AND APPROPRIATE. VSS, PT ASSESSMENT PREFORMED. POC DISCUSSED. PT AGREES TO GET OOB AND PARTICIPATE WITH DAILY CARE. DENIES PAIN, SOB OR DISCOMFORT. CALL LIGHT WITHIN REACH. INSTRUCTED PT TO CALL FOR ASSISTANCE, VERBALIZES UNDERSTANDING.
--- NOTE | 2021-11-17 10:30 | NUR ---
PT note Patient is screened for PT intervention and no needs are identified at this time
--- NOTE | 2021-11-17 14:37 | NUR ---
PT RESTING IN BED. STATES NO PAIN AT THIS TIME. IV PATENT. FALL/SAFETY PRECAUTIONS IN PLACE. CALL LIGHT WITHIN REACH.
--- NOTE | 2021-11-17 15:44 | NUR ---
SMITH REMOVED AT THIS TIME. PT TOLERATED WELL. IVF INFUSING WITH NO COMPLICATION. CALL LIGHT WITHIN REACH. FALL/SAFETY PRECAUTION IN PLACE.
--- NOTE | 2021-11-17 19:20 | NUR ---
PT SITTING IN RECLINER AT BEDSIDE, PT ALERT AND ORIENTED X4, DISCUSSED POC, PT DENIES ANY PAIN AT THIS TIME. 02 1L NC, DISCUSSED INCENTIVE SPIROMETER PT REACHED 500ML, ENCOURAGED ITS USE AND INCREASED GOAL TO 1000ML VOLUME. BS HYPERACTIVE X4, PT STATES BM 2/3. DRESSING TO ABD CDI, ABDOMINAL BINDER REPLACED. NOTED BLE TRACE; ENCOURAGED ELEVATION. ASSESSMENT REVIEW COMPLETED, CALL LIGHT IN REACH,CONTINUE TO MONITOR.
[2021-11-17 20:00] VITALS: BP 140/68
--- NOTE | 2021-11-17 20:50 | NUR ---
PT SITTING IN RECLINER, NO SIGNS OF DISTRESS NOTED, RESP EVEN AND UNLABORED. PT MEDICATED PER MAR, THEN ASSISTED TO BED FROM RECLINER, PT TOLERATED WELL. VOICES NO NEEDS OR COMPLAINTS, CALL LIGHT IN REACH,CONTINUE TO MONITOR.
--- NOTE | 2021-11-18 | NUR ---
PT RESTING IN BED, MEDICATED PER MAR, VOICES NO NEEDS OR COMPLAINTS AT THIS TIME, CALL LIGHT IN REACH,CONTINUE TO MONITOR.
[2021-11-18 04:00] VITALS: BP 136/71
--- NOTE | 2021-11-18 05:36 | NUR ---
PT RESTING IN BED, NO SIGNS OF DISTRESS NOTED, RESP EVEN AND UNLABORED. PT VOICES NO NEEDS OR COMPLAINTS AT THIS TIME, PT MEDICATED PER MAR, CALL LIGHT IN REACH,CONTINUE TO MONITOR.
[2021-11-18 05:55] LABS: HEMATOCRIT 29.4 % (39.0-50.0); HEMOGLOBIN 8.8 g/dl (14.0-18.0); MEAN CELL VOLUME 81.2 fL CALC (80.0-100.0); MEAN CORPUSCULAR HGB 24.3 pG CALC (26.0-32.0); MEAN CORPUSCULAR HGB CONC 29.9 g/dL CAL (32.0-36.0); RED BLOOD COUNT 3.62 mill/uL (4.70-6.10); RED CELL DISTRI WIDTH 23.9 % (11.5-15.5)
[2021-11-18 05:58] LABS: ANION GAP 9 (6-22 (CALC)); BUN 11 mg/dL (8-23); BUN/CREATININE RATIO 13 (12-20 (CALC)); CARBON DIOXIDE 29 mmol/l (22-30); CHLORIDE 102 mmol/l (95-108); CREATININE 0.8 mg/dL (0.7-1.3); GFR > 60 ML/MIN (>=60 (CALC)); GFR FOR AFR.AMER. > 60 ML/MIN (>=60 (CALC)); MAGNESIUM 1.7 mg/dL (1.6-2.3); POTASSIUM 3.1 mmol/l (3.5-5.1); SODIUM 137 mmol/l (137-146)
[2021-11-18 08:00] VITALS: BP 129/70
--- NOTE | 2021-11-18 08:00 | NUR ---
ASSESSMENT AND VITALS ALLOWED AT THIS TIME. LUNG SOUNDS CLEAR UPPER/LOWER LOBES ANTERIOR. DIMINISHED/CLEAR POSTERIOR IN RLL AND LLL. HEART SOUNDS ARE REGULAR. BOWEL SOUNDS ARE ACTIUVE X4. PT IS A&OX3. O2 @1L PER NC STAT 93%. IS PERFORMED. IV 20RAC IVF INFUSING PER EMAR. STATES NO PAIN AT THIS TIME. FALL/SAFTEY PRECAUTIONS WITHIN REACH. CALL LIGHT WITHIN REACH.
--- NOTE | 2021-11-18 12:00 | NUR ---
PT WITH FAMILY MEMBER AT THIS TIME. IVF INFUSING WITH NO COMPLICATIONS. STATES PAIN. SCHEDULED TORADAL GIVEN. FALL/SAFETY PRECAUTIONS IN PLACE. CALL LIGHT WITHIN REACH
[2021-11-18 15:28] VITALS: BP 133/72
--- NOTE | 2021-11-18 18:30 | NUR ---
PERFORMED DRESSING CHANGE. MIDLINE TOTAL ROSEY 16. COVERED WITH 4X4 AND ABD PAD AND SECURED WITH ABD BINDER
[2021-11-18 19:00] VITALS: BP 147/67
--- NOTE | 2021-11-18 21:00 | NUR ---
PATIENT ASSEMENT COMPLETED AT THIS TIME. MEDICATIONS ADMISNITERED PER EMAR.
--- NOTE | 2021-11-18 21:20 | NUR ---
DRESSING REMIANIS CDI, ABDOMINAL BINDER INTACT, NO NOTICEABLE DRAINAGE OR ODOR NOTED. DRESSING CHANGED THIS MORNING
--- NOTE | 2021-11-18 21:41 | NUR ---
O2 ON @ 1L/NC WITH SPO2 94%. BREATH SOUNDS BILATERALLY DIMINISHED. NO DISTRESS NOTED
[2021-11-19] VITALS: BP 129/65
--- NOTE | 2021-11-19 01:50 | NUR ---
PATIENT REQUESTING PAIN MEDICATION, MESSAGE OUT TO DR REGARDING PAIN MEEICATION.
--- NOTE | 2021-11-19 02:30 | NUR ---
ORDER RECEIEVD FROM TRAMADOL.
[2021-11-19 04:00] VITALS: BP 119/58
--- NOTE | 2021-11-19 04:30 | NUR ---
PATIENT UP TO THE RESTROOM AT THIS TIME. CALL LIGHT WITHIN REACH. HUMAN RESOURCE ADVISER ASSITED PT BACK TO BED.
[2021-11-19 04:58] LABS: HEMATOCRIT 29.7 % (39.0-50.0); HEMOGLOBIN 9.1 g/dl (14.0-18.0)
[2021-11-19 05:11] LABS: ANION GAP 9 (6-22 (CALC)); BUN 8 mg/dL (8-23); BUN/CREATININE RATIO 9 (12-20 (CALC)); CARBON DIOXIDE 29 mmol/l (22-30); CHLORIDE 103 mmol/l (95-108); CREATININE 0.8 mg/dL (0.7-1.3); GFR > 60 ML/MIN (>=60 (CALC)); GFR FOR AFR.AMER. > 60 ML/MIN (>=60 (CALC)); POTASSIUM 2.9 mmol/l (3.5-5.1); SODIUM 138 mmol/l (137-146)
--- NOTE | 2021-11-19 08:00 | NUR ---
ASSESSMENT AND VITALS ALLOWED AT THIS TIME. LUNG SOUNDS ARE CLEAR UPPER AND LOWER LOBES ANTERIOR. LOWER LOBES DIMINISHED POSTERIOR. HEART SOUNDS ARE REGULAR. BOWEL SOUNDS HYPERACTIVE. DRESSING IS CDI. STATES ABD IS TENDER WITH LITTLE DISCOMFRT. FALL/SAFETY PRECAUTION WITHIN REACH. CALL LIGHT WITHIN REACH. PT STATES HAVING MULTIPLE BM AT NIGHT 4X WATERY STOOLS. PT A@OX3. IV LOCATED ON 20G RAC FLUSHED WITH NO RESISTANCE.
[2021-11-19 08:06] VITALS: BP 140/74
--- NOTE | 2021-11-19 12:00 | NUR ---
PT SITTING IN RECLINER WATCHING TV AT THIS TIME. O2 IN PLACE VIA NC @1L. STATES NO PAIN AT THIS TIME. PAIN MEDICATION GIVEN PRIOR WORKED. DRESSING IS CDI. STATES NO NEEDS AT THIS TIME. CALL LIGHT WITHIN REACH
[2021-11-19] MEDS ORDERED: KLOR-CON M2020 MEQ PO (12:50)
[2021-11-19] MEDS ORDERED: PERCOCET 5/325M1 TAB PO (12:51)
--- NOTE | 2021-11-19 14:02 | NUR ---
Discharge instructions given. Patient verbalizes understanding of same. Discharged in stable condition via Wheelchair to Home with ([employer] SUPERVISOR) staff. All belongings sent with pt. IV REMOVED 20G RAC CATHETER INTACT. REPLACED DRESSING. EDUCATED ON DRESSING. LEFT WITH DAUGHTER.
== END 2021-11-19 14:03 | disposition home or self-care (01) | DRG 331 ==
LOC: MS2 11-16 10:31 → OR 11-16 14:45 → MS2 11-19 14:03
PROVIDERS: Hospitalist; ADMIT Surgery; ATTEND Surgery
PROC: 0DTG0ZZ Resection of Left Large Intestine, Open Approach (ICD-10-PCS; principal; 2021-11-16)
PROC: 0DNL4ZZ Release Transverse Colon, Percutaneous Endoscopic Approach (ICD-10-PCS; 2021-11-16)
DX: C18.7 Malignant neoplasm of sigmoid colon (principal); I10 Essential (primary) hypertension; J44.9 Chronic obstructive pulmonary disease, unspecified; E11.9 Type 2 diabetes mellitus without complications; E78.5 Hyperlipidemia, unspecified; Z87.891 Personal history of nicotine dependence; Z80.0 Family history of malignant neoplasm of digestive organs; Z79.84 Long term (current) use of oral hypoglycemic drugs
CPT/HCPCS: J0131; J1100; J1650; Q9967

== ENCOUNTER 2021-11-28 09:53 | Observation (INO) | payer MEDICARE ==
[~2021-11-28] VITALS: Ht 182.9 cm; Wt 100.0 kg
[~2021-11-28 09:53] MED LIST changes: +KLOR-CON M2020 MEQ PO; +PERCOCET 5/325M1 TAB PO; +SENIOR VITAM PO
--- NOTE | 2021-11-28 10:10 | NUR ---
PT TO ROOM VIA WC ABLE TO STAND AND TRANSFER SELF TO STRETCHER. DRSG TO ABD REMOVED. MOD AMT SEROSANGENOUS FLUID ON DRSG. NO FOUL ODOR. RED INDURATED AREA TO DISTAL INCISION LINE.
[2021-11-28 10:52] LABS: HEMOGLOBIN 10.7 g/dl (14.0-18.0); IMMATURE GRANULOCYTES 0.2 % (0.0-5.0); MEAN CELL VOLUME 81.4 fL CALC (80.0-100.0); MEAN CORPUSCULAR HGB 24.2 pG CALC (26.0-32.0); MEAN CORPUSCULAR HGB CONC 29.7 g/dL CAL (32.0-36.0); NEUT# 10.63 thou/uL (1.82-7.42); RED BLOOD COUNT 4.42 mill/uL (4.70-6.10); RED CELL DISTRI WIDTH 21.1 % (11.5-15.5)
[2021-11-28 11:10] LABS: ALBUMIN 3.5 g/dL (3.2-5.0); ALKALINE PHOSPHATASE 80 u/l (38-126); BUN 10 mg/dL (8-23); BUN/CREATININE RATIO 12 (12-20 (CALC)); CARBON DIOXIDE 30 mmol/l (22-30); CHLORIDE 97 mmol/l (95-108); CREATININE 0.8 mg/dL (0.7-1.3); GFR > 60 ML/MIN (>=60 (CALC)); GFR FOR AFR.AMER. > 60 ML/MIN (>=60 (CALC)); SGOT/AST 20 u/l (19-48); SODIUM 138 mmol/l (137-146); TOTAL PROTEIN 6.3 g/dL (6.3-8.2)
[2021-11-28 11:11] LABS: ANION GAP 15 (6-22 (CALC)); BILIRUBIN, TOTAL 0.4 mg/dL (0.0-1.4); POTASSIUM 3.8 mmol/l (3.5-5.1)
--- NOTE | 2021-11-28 12:26 | NUR ---
MD AT BEDSIDE TO DISCUSS RESULTS AND POC
--- NOTE | 2021-11-28 14:50 | NUR ---
Sunny AGUIRRE AT BEDSIDE TO DISCUSS RESULTS AND POC
--- NOTE | 2021-11-28 15:54 | NUR ---
REPORT CALLED TO [facility] WEEKS
--- NOTE | 2021-11-28 16:10 | NUR ---
TO MED SURG VIA WHEELCHAIR
[2021-11-28 16:38] VITALS: BP 155/72
--- NOTE | 2021-11-28 16:42 | NUR ---
REPORT RECEIVED FROM BRUNA IN ED, PT ARRIVED ON UNIT @ 1611 TRANSPORTED VIA W/C AND SETTLED IN ROOM. ALERT AND ORIENTED X 4, DENIES PAIN, ORIENTED TO ROOM AND CALL MIKE, # 20 IV CATHETER INTACT TO LAC TEDS APPLIED AFTER EDUCATING PT ON PURPOSE OF WEARING THEM, HE STATED UNDERSTANDING, WILL CONTINUE TO MONITOR.
--- NOTE | 2021-11-28 18:50 | NUR ---
REPORT RECEIVED FROM Eric EDMONDSON RN
[2021-11-28 19:00] VITALS: BP 124/66
--- NOTE | 2021-11-28 19:25 | NUR ---
PT ASSEMENT COMPLETED AT THIS TIME.
--- NOTE | 2021-11-29 00:15 | NUR ---
ANTIBIOTIC HUNG AT THIS TIME. PT ASSITED TO BATHROOM , MODERATE AMOUNT OF DRAINAGE NOTED. INSTRUCTED PT TO ALERT NURSE ONCE BACK IN BED FOR DRESSING CHANGE.
[2021-11-29 04:00] VITALS: BP 131/70
[2021-11-29 04:55] LABS: HEMATOCRIT 31.6 % (39.0-50.0); HEMOGLOBIN 9.5 g/dl (14.0-18.0); MEAN CELL VOLUME 81.4 fL CALC (80.0-100.0); MEAN CORPUSCULAR HGB 24.5 pG CALC (26.0-32.0); MEAN CORPUSCULAR HGB CONC 30.1 g/dL CAL (32.0-36.0); RED BLOOD COUNT 3.88 mill/uL (4.70-6.10)
[2021-11-29 05:14] LABS: ANION GAP 14 (6-22 (CALC)); BUN 10 mg/dL (8-23); BUN/CREATININE RATIO 12 (12-20 (CALC)); CARBON DIOXIDE 27 mmol/l (22-30); CHLORIDE 102 mmol/l (95-108); CREATININE 0.8 mg/dL (0.7-1.3); GFR > 60 ML/MIN (>=60 (CALC)); GFR FOR AFR.AMER. > 60 ML/MIN (>=60 (CALC)); MAGNESIUM 1.5 mg/dL (1.6-2.3); POTASSIUM 3.8 mmol/l (3.5-5.1); SODIUM 139 mmol/l (137-146)
--- NOTE | 2021-11-29 05:30 | NUR ---
PT SLEEPING SINCE MIDNIGHT, FELL ASLEEP DID NOT CALL FOR DRESSING CHANGE, STATES HE WILL CHANGE IT IN THE AM. PT NPOAS OF MIDNIGHT. CALL LIGHT AND BEDSIDE TABLE WITHIN REACH.
--- NOTE | 2021-11-29 07:26 | NUR ---
SHIFT CHANGE REPORT, PT AWAKE ALERT AND ORIENTED RESTING IN BED, NO C/O DISCOMFORT AT THIS TIME, IVF INFUSING, CALL [facility] IN REACH AND BED LOCKED IN LOWEST POSTION.
[2021-11-29 07:38] VITALS: BP 131/68
--- NOTE | 2021-11-29 09:20 | NUR ---
DR BURROWS CALLED INFORMING US HE WOULD BE DIONG AN INCISION AND DRAINAGE PROCEDURE AT APPROXIMATELY 1200 TODAY, REQUEST TO SET-UP SUCTION WITH [facility] AND TO HAVE PT SIGN CONSENT. PT INFORMED AND STATED UNDERSTANDING.
--- NOTE | 2021-11-29 12:51 | NUR ---
DR BURROWS ROUNDED AND PERFORMED BEDSIDE PROCEDURE, SAID WILL WRITE DRESSING CHANGE ORDERS AND INSTRUCTIONS FOR PATIENT. PT TOLERATED PROCEDURE WELL, SITTING UP AT BEDSIDE NOW HAVING MEAL.
--- NOTE | 2021-11-29 13:15 | NUR ---
S: KHARI BOLIVAR is a 71 M who presents with abscess/wound. He has a history of arthritis, diabetes, HTN, lung disease, acid reflux, high cholesterol, colon cancer . All medications in patient's chart were reviewed. O: VS: BP 131/68 mmHg, P 90 bpm, RR 18 bpm,T 98.9 F W 100 kg, HT 72 in, Scr= 1 mg/dl, CrCl= 98.6 ml/min A: Preliminary blood cultures are pending. Wound culture is pending. P: Patient is on Zosyn 3.375 g IV Q6H. Vancomycin ordered for pharmacy to dose. Start Vancomycin 1g IV Q12H. Vancomycin trough is drawn before the 4th dose on 11/30 @0830. Vancomycin goal trough is between 10-15 mcg/ml. Pharmacy will follow and or advise on antibiotics use as needed.
[2021-11-29 15:52] VITALS: BP 130/66
--- NOTE | 2021-11-29 18:19 | NUR ---
SURGICAL DRESSING TO ABD SATURATED, REMOVED AND NEW DRESSING APPLIED-DRY PACKING ORDERED.
[2021-11-29 19:01] VITALS: BP 118/58
[2021-11-30 04:00] VITALS: BP 139/62
[2021-11-30 05:34] LABS: HEMATOCRIT 29.6 % (39.0-50.0); MEAN CELL VOLUME 81.1 fL CALC (80.0-100.0); MEAN CORPUSCULAR HGB 24.7 pG CALC (26.0-32.0); MEAN CORPUSCULAR HGB CONC 30.4 g/dL CAL (32.0-36.0); RED BLOOD COUNT 3.65 mill/uL (4.70-6.10); RED CELL DISTRI WIDTH 20.8 % (11.5-15.5)
[2021-11-30 05:57] LABS: ANION GAP 11 (6-22 (CALC)); BUN 11 mg/dL (8-23); BUN/CREATININE RATIO 14 (12-20 (CALC)); CARBON DIOXIDE 25 mmol/l (22-30); CHLORIDE 108 mmol/l (95-108); CREATININE 0.8 mg/dL (0.7-1.3); GFR > 60 ML/MIN (>=60 (CALC)); GFR FOR AFR.AMER. > 60 ML/MIN (>=60 (CALC)); POTASSIUM 3.6 mmol/l (3.5-5.1); SODIUM 140 mmol/l (137-146)
[2021-11-30 05:59] LABS: MAGNESIUM 1.9 mg/dL (1.6-2.3)
--- NOTE | 2021-11-30 07:39 | NUR ---
REPORT RECEIVE FROM SHWETA WEEKS.
[2021-11-30 08:53] VITALS: BP 132/74
[2021-11-30 10:17] VITALS: BP 131/57
--- NOTE | 2021-11-30 10:32 | NUR ---
ALERT AND ORIENTED PATIENT X3. NO RESPIRATORY DISTRES, NO PAIN. EDUCATED PATIENT ABOUT MEDICATIONS AND NURSING PLAN FOR TODAY. DRESSING CHANGED ACCORDING MEDICAL ORDER.
--- NOTE | 2021-11-30 13:58 | NUR ---
S: KHARI BOLIVAR is a 71 M who presents with abscess/wound. He has a history of arthritis, diabetes, HTN, lung disease, acid reflux, high cholesterol, colon cancer. All medications in patient's chart were reviewed. O: VS: BP 131/57 mmHg, P 85 bpm, RR 18 bpm, T 99.2 F W 100 kg, HT 72 in, Scr= 0.8 mg/dl, CrCl= 98.6 ml/min A: Preliminary blood cultures show no growth. Final wound culture shows no growth. P: Patient is on Zosyn 3.375 g IV Q6H. Vancomycin ordered for pharmacy to dose. Continue Vancomycin 1g IV Q12H. Vancomycin trough is drawn before the 4th dose on 12/01 @ 2030. Vancomycin goal trough is between 10-15 mcg/ml. Pharmacy will follow and or advise on antibiotics use as needed.
[2021-11-30 17:16] VITALS: BP 136/65
[2021-11-30 17:55] VITALS: BP 128/54
[2021-11-30 19:00] VITALS: BP 132/64
--- NOTE | 2021-11-30 19:20 | NUR ---
PT RESTING IN BED. DENIES PAIN AT THIS TIME. HE IS WATCHING TV. ASSESSMENT COMPLETED AT THIS TIME. ABD INCISION IS CDI AT THIS TIME W/HYPO BOWEL SOUNDS.
--- NOTE | 2021-11-30 20:55 | NUR ---
PT MEDICATED AT THIS TIME. GLUCOSE 127, NO INSULIN GIVEN AT THIS TIME. PT DENIES ANY OTHER NEEDS AND VERBALIZED UNDERSTANDING USE OF CALL LIGHT.
--- NOTE | 2021-11-30 23:11 | NUR ---
PT MEDICATED ORDERS PROVIDE W/IV ANTIBIOTIC THERAPY. INS DRESSING REMAINS CDI. dENIES ANY OTHER NEEDS. CALL LIGHT W/IN REACH.
[2021-12-01 04:00] VITALS: BP 121/67
--- NOTE | 2021-12-01 06:10 | NUR ---
PT MEDICATED W/IV ANTIBIOTIC THERAPY. HE DENIED ANY NEEDS AT THIS TIME. WATER REPLENISHED AT THIS TIME. REPORTS FEELING GOOD AND DENIES PAIN AT THIS TIME.
[2021-12-01] MEDS ORDERED: BACTRIM DS1 TAB PO (07:43)
[2021-12-01 08:29] VITALS: BP 121/67
--- NOTE | 2021-12-01 10:42 | NUR ---
RECEIVE REPORT THIS MORNIG FROM [facility]. PATIENT STABLE. NO RESPIRATORY DISTRESS, NO PAIN. CHANGED DRESSING THIS MORNING AND TEACHING FAMILY MEMBER FOR FOLLOW CARE AT HOME. EDUCATED PATIENT ABOUT MEDICATIONS AT HOME. PATIENT REFER UNDERSTAND. PATIENT LIVING NOW
[2021-12-04] MEDS ORDERED: PERCOCET 5/321 COMBO PO (12:40)
== END 2021-12-01 10:42 | disposition home health service (06) ==
LOC: ED 09:53 → ED-I 12:21 → ED 13:51 → MS2 13:51
PROVIDERS: Emergency Medicine; Nurse Practitioner; ADMIT Internal Medicine; ATTEND Internal Medicine
PROC: 0H97XZZ Drainage of Abdomen Skin, External Approach (ICD-10-PCS; principal; 2021-11-29)
DX: T81.41XA Infection following a procedure, superficial incisional surgical site, initial encounter (principal); L02.211 Cutaneous abscess of abdominal wall; I10 Essential (primary) hypertension; E11.9 Type 2 diabetes mellitus without complications; J43.9 Emphysema, unspecified; D64.9 Anemia, unspecified; K21.9 Gastro-esophageal reflux disease without esophagitis; Y83.6 Removal of other organ (partial) (total) as the cause of abnormal reaction of the patient, or of later complication, without mention of misadventure at the time of the procedure; Z87.891 Personal history of nicotine dependence; Z79.84 Long term (current) use of oral hypoglycemic drugs; Z90.2 Acquired absence of lung [part of]; Z90.49 Acquired absence of other specified parts of digestive tract; Z20.822 Contact with and (suspected) exposure to COVID-19
CPT/HCPCS: J1650; J3475; Q9967

== ENCOUNTER 2022-12-27 08:17 | Day surgery (SDC) | payer MEDICARE ==
[~2022-12-27] VITALS: Ht 185.4 cm; Wt 97.5 kg
[~2022-12-27 08:17] MED LIST changes: +BACTRIM DS1 TAB PO; +D31000 UNIT PO; +IRON (FERROUS S50 MG PO; +PERCOCET 5/321 COMBO PO; +POTASSIUM99 MG PO; +VENOFER20 MG/ML IV; +ZINC50 M1 PO
[2022-12-27 10:57] VITALS: BP 136/75
== END 2022-12-27 10:45 | disposition home or self-care (01) ==
LOC: ENDO 08:17 → ORM 11:00 → ENDO 11:00
PROVIDERS: ATTEND Surgery
PROC: 0DBE8ZX Excision of Large Intestine, Via Natural or Artificial Opening Endoscopic, Diagnostic (ICD-10-PCS; principal; 2022-12-27)
DX: Z12.11 Encounter for screening for malignant neoplasm of colon (principal); K63.89 Other specified diseases of intestine; K64.8 Other hemorrhoids; D50.9 Iron deficiency anemia, unspecified; Z85.038 Personal history of other malignant neoplasm of large intestine; Z90.49 Acquired absence of other specified parts of digestive tract

== ENCOUNTER 2023-11-30 03:32 | Emergency (ER) | payer MEDICARE ==
[2023-11-30] VITALS (8 sets, daily range): BP systolic 73–143; BP diastolic 48–71
[~2023-11-30] VITALS: Ht 185.4 cm; Wt 97.0 kg
[2023-11-30] MEDS ORDERED: methylPREDNISolone SODIUM SUCC 125 MG/2 ML SDV IV ONE (03:50)
[2023-11-30] MEDS ORDERED: ALBUTEROL SULFATE 2.5 MG VIAL IN ONE (03:50)
[2023-11-30] MEDS ORDERED: IPRATROPIUM-Albuterol 0.5MG-2.5MG/3 ML NEB ONE (03:50)
[2023-11-30 04:16] LABS: BASO% 0.4 % (0-3); EOS% 2.6 % (0-8); HEMATOCRIT 38.5 % (39.0-50.0); HEMOGLOBIN 12.7 g/dl (14.0-18.0); LYMPH% 19.7 % (15-41); MEAN CELL VOLUME 88.3 fL CALC (80.0-100.0); MEAN CORPUSCULAR HGB 29.1 pG CALC (26.0-32.0); NEUT# 9.93 thou/uL (1.82-7.42); NEUT% 70.3 % (42-76); RED BLOOD COUNT 4.36 mill/uL (4.70-6.10); RED CELL DISTRI WIDTH 12.4 % (11.5-15.5)
[2023-11-30 04:31] LABS: ALBUMIN 3.6 g/dL (3.2-5.0); ALKALINE PHOSPHATASE 78 u/l (38-126); ANION GAP 10 (6-22 (CALC)); BUN 13 mg/dL (8-23); BUN/CREATININE RATIO 15 (12-20 (CALC)); CARBON DIOXIDE 33 mmol/l (22-30); CHLORIDE 98 mmol/l (95-108); CREATININE 0.9 mg/dL (0.7-1.3); GFR FOR AFR.AMER. > 60 ML/MIN (>=60 (CALC)); GFR OTHER RACES > 60 ML/MIN (>=60 (CALC)); POTASSIUM 4.5 mmol/l (3.5-5.1); SGOT/AST 25 u/l (19-48); SODIUM 136 mmol/l (137-146); TOTAL PROTEIN 6.3 g/dL (6.3-8.2)
[2023-11-30 04:33] LABS: BILIRUBIN, TOTAL 0.3 mg/dL (0.2-1.3)
[2023-11-30] MEDS ORDERED: DOXYCYCLINE HYCLATE 100 MG/CAP PO ONE (06:15)
[2023-11-30] MEDS ORDERED: VIBRAMYCIN100 M2 PO (06:15)
== END 2023-11-30 06:52 | disposition home or self-care (01) ==
LOC: ED 03:32
PROVIDERS: Family Medicine
DX: J44.1 Chronic obstructive pulmonary disease with (acute) exacerbation (principal); D72.829 Elevated white blood cell count, unspecified; I10 Essential (primary) hypertension; E11.9 Type 2 diabetes mellitus without complications; E78.00 Pure hypercholesterolemia, unspecified; K21.9 Gastro-esophageal reflux disease without esophagitis; Z85.038 Personal history of other malignant neoplasm of large intestine; Z79.84 Long term (current) use of oral hypoglycemic drugs; Z99.81 Dependence on supplemental oxygen; Z20.822 Contact with and (suspected) exposure to COVID-19

== ENCOUNTER 2024-05-02 13:08 | Emergency (ER) | payer MEDICARE ==
[~2024-05-02] VITALS: Ht 185.4 cm; Wt 96.6 kg
[~2024-05-02 13:08] MED LIST changes: +VIBRAMYCIN100 M2 PO
[2024-05-02 13:17] VITALS: BP 157/83
[2024-05-02 13:30] VITALS: BP 119/58
[2024-05-02 13:41] VITALS: BP 119/58
== END 2024-05-02 13:45 | disposition home or self-care (01) ==
LOC: ED 13:08
DX: Z03.823 Encounter for observation for suspected inserted (injected) foreign body ruled out (principal); I10 Essential (primary) hypertension; E11.9 Type 2 diabetes mellitus without complications; K21.9 Gastro-esophageal reflux disease without esophagitis; E78.00 Pure hypercholesterolemia, unspecified; Z85.038 Personal history of other malignant neoplasm of large intestine